=== PATIENT | male | born 1950 | race Caucasian/White ===

== ENCOUNTER → 2019-12-29 | Day surgery (SDC) | payer OTHER ==
[2019-12-19 12:48] LABS: BASOPHILS # (AUTO) 0.1 (0.0-0.1); BASOPHILS % 0.8 % (0.0-1.0); EOSINOPHILS # (AUTO) 0.4 (0.0-0.4); EOSINOPHILS % 4.9 % (0.0-6.0); HEMATOCRIT 40.8 % (38.2-49.6); HEMOGLOBIN 14.4 g/dL (14.0-18.0); LYMPHOCYTES # (AUTO) 2.8 (1.0-3.2); LYMPHOCYTES % 36.7 % (18.0-39.1); MEAN CORPUSCULAR HEMOGLOBIN 34.4 pg (28-32); MEAN CORPUSCULAR HGB CONC 35.3 g/dL (31-35); MEAN CORPUSCULAR VOLUME 97.4 fL (81-99); MONOCYTES % 13.6 % (4.4-11.3); NEUTROPHILS # (AUTO) 3.3 (2.1-6.9); NEUTROPHILS % 43.7 % (38.7-80.0); PLATELET COUNT 216 x10e3/uL (140-360); RED BLOOD COUNT 4.19 x10e6/uL (4.3-5.7); RED CELL DISTRIBUTION WIDTH 12.5 % (11.7-14.4)
[2019-12-19 13:09] LABS: BLOOD UREA NITROGEN 15 mg/dL (7-26); BUN/CREATININE RATIO 15 (6-25); CALCIUM 9.3 mg/dL (8.4-10.2); CARBON DIOXIDE 23 mmol/L (22-29); CHLORIDE 102 mmol/L (98-107); CREATININE, SERUM 0.99 mg/dL (0.72-1.25); EST GLOMERULAR FILTRATION RATE > 60 ML/MIN (60-); GLUCOSE 102 mg/dL (74-118); SODIUM 137 mmol/L (136-145)
--- NOTE | 2019-12-19 13:36 | Diagnostic Imaging Report ---
EXAMINATION: CHEST 2 VIEWS INDICATION: Pre-operative COMPARISON: None FINDINGS: LINES/TUBES:None LUNGS:Increased AP diameter of the chest. No focal consolidation or pulmonary edema. PLEURA:No pleural effusion or pneumothorax. MEDIASTINUM:The cardiomediastinal silhouette appears normal in size and shape. BONES/SOFT TISSUES:No acute osseous injury. ABDOMEN:No free air under the diaphragm. Status post cholecystectomy. IMPRESSION: No focal pneumonia or pulmonary edema. Signed by: Salvador Waddell MD on 12/19/2019 1:33 PM
[~2019-12-29] MED LIST: BUPIVACAINE 0.5%/EPI 30 ML SDV INJ ONE; CEFAZOLIN SOD 1 GM/NS 50ML 50 ML IV ONE; DEXAMETHASONE SOD PHOS INJ 4 MG/ML VIAL ONE; FENTANYL CITRATE/PF 100MCG/2 ML INJ ONE; HYDROCHLOROTHIA25 MG PO; LIDOCAINE HCL 2% LOCAL INJ 5 ML SDV VIAL INJ ONE; LOSARTAN POTASS25 MG PO; LOVASTATIN20 MG PO; METOCLOPRAMIDE HCL 10 MG/2ML VIAL ONE; MIDAZOLAM HCL 2 MG/2 ML VIAL ONE; ONDANSETRON HCL INJ 2MG/ML 2ML 2 MG/ML VIAL ONE; PROPOFOL IV EMULSION 10 MG/ML 20 ML VIAL ONE; ROCURONIUM BROMIDE 10 MG/ML 5ML VIAL ONE; SEVOFLURANE INHAL SOLN 250 ML PEN BTL ONE
--- OUTSIDE RECORDS SUMMARY | 2019-12-29 05:31 | XMS REPORT ---
Author Author [facility] Address Unknown Phone Unavailable Care Team Providers Care Washer Off Name Role Phone MATTHIAS PARISI Unavailable Unavailable Problems This patient has no known problems. Allergies, Adverse Reactions, Alerts This patient has no known allergies or adverse reactions. Medications This patient has no known medications. Results Test Description Test Time Test Comments Text Results Atomic Results Result Comments CHEST 2 VIEWS 2019-12-19 13:32:00 [place] [address] Patient Name: CLINT GUZMAN MR #: [id number] : 1950 Age/Sex: 69/M Req #: [id number] [facility] Physician: Ordered by: MATTHIAS PARISI MD Report #: [id number] Location: OR Room/Bed: Procedure: [id number] DX/CHEST 2 VIEWS Exam Date: 12/19/19 Exam Time: 1301 REPORT STATUS: Signed EXAMINATION: CHEST 2 VIEWS INDICATION: Pre-operative COMPARISON: None FINDINGS: LINES/TUBES:None LUNGS:Increased AP diameter of the chest. No focal consolidation or pulmonary edema. PLEURA:No pleural effusion or pneumothorax. MEDIASTINUM:The cardiomediastinal silhouette appears normal in size and shape. BONES/SOFT TISSUES:No acute osseous injury. ABDOMEN:No free air under the diaphragm. Status post cholecystectomy. IMPRESSION: No focal pneumonia or pulmonary edema. Signed by: Radha Bardales MD on 12/19/2019 1:33 PM Dictated By: RADHA BARDALES MD [id number] Transcribed By: OVIDIO on 12/19/19 1333 COPY TO: MATTHIAS PARISI MD
[2019-12-29 10:10] VITALS: BP 131/71
--- NOTE | 2019-12-29 10:11 | Operative Report ---
DATE OF PROCEDURE: 12/29/2019 SURGEON: Jorge Hansen MD PREOPERATIVE DIAGNOSIS: Left inguinal hernia. POSTOPERATIVE DIAGNOSIS: Left inguinal hernia. PROCEDURE PERFORMED: Repair of the left inguinal hernia with Ultrapro Hernia System, oval type. CONCRETE PUDDLER: Irma Gonzales, licensed surgical instrument mechanic. ESTIMATED BLOOD LOSS: Minimal. DRAINS: None. COMPLICATIONS: None. INDICATION AND FINDINGS: The patient is a 69-year-old male, admitted for repair of painful bulge of the left groin. INTRAOPERATIVE FINDINGS: The patient had a large direct defect of the left groin with a blowout. There was no indirect hernia sac. The Ultrapro hernia system, oval type was deployed. DESCRIPTION OF PROCEDURE: With the patient lying on the operative table in the supine position, after administration of general anesthesia, he was prepped and draped for repair of left inguinal hernia. Preemptive anesthesia was given with 0.5% Marcaine with epinephrine as incisional block and then later on as a field block. An incision was made across the left groin, deepened through the skin and subcutaneous tissue until the external oblique aponeurosis was identified. Bleeding points were cauterized. External oblique aponeurosis was incised along the course of its fibers transecting the external inguinal ring. Medial and lateral leaves were developed. The cord was mobilized at the level of the pubic tubercle and retracted away from the operative field by Kemar drain. After we did that, we the defect that was clearly outside of the cord, until we the cord from the direct defect, we explored the cord and no indirect hernia sac was found. At this point, we excised the thinned out transversalis fascia and then using blunt dissection created a pocket to accommodate the mesh, then the mesh was deployed into the preperitoneal space over the area of the left femoral vein in a TachoSil fashion. Then, we made a slit in the cord and then we secured the double layer of the mesh over their local tissues using a series of interrupted 2-0 Ethibond sutures. The mesh laid completely flat. Then, we irrigated the wound. The sponge and instrument count were pronounced correct 1st time as well as several other times. We gave him more local using the same material as a field block and then we went ahead and closed the wound using 2-0 Vicryl for the external oblique aponeurosis. The soft tissues were closed using 2-0 catgut and the skin was closed using chely. Sterile dressing was applied. The patient tolerated the procedure well, and was taken to recovery room in stable condition. His was given postoperative instructions. MD NURY Pope/MODWojciech /[id number]
== END | disposition home or self-care (01) ==
LOC: OR 05:28
PROVIDERS: ATTEND Surgery
DX: K40.90 Unilateral inguinal hernia, without obstruction or gangrene, not specified as recurrent (principal); C44.80 Unspecified malignant neoplasm of overlapping sites of skin; M12.9 Arthropathy, unspecified; I10 Essential (primary) hypertension; E78.5 Hyperlipidemia, unspecified; K21.9 Gastro-esophageal reflux disease without esophagitis; Z01.810 Encounter for preprocedural cardiovascular examination; Z01.812 Encounter for preprocedural laboratory examination; Z01.818 Encounter for other preprocedural examination
CPT/HCPCS: 36415; 49505; 71046; 80048; 85025; 93005; C1781; J0690; J1100; J2001; J2250; J2405; J2704; J2765; J3010